=== PATIENT | male | born 1965 | race Caucasian/White ===

== ENCOUNTER 2018-12-25 19:07 | Emergency (ER) | payer MEDICAID ==
[~2018-12-25] VITALS: Ht 180.3 cm; Wt 76.2 kg
[2018-12-25 19:16] VITALS: BP 117/76
--- NOTE | 2018-12-25 19:16 | NUR ---
TO BED # 5 AMBULATORY
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
--- NOTE | 2018-12-25 19:30 | NUR ---
TelePsych consult requested.
[2018-12-25 19:53] LABS: BASOPHILS # (AUTO) 0.1 K/uL (0.00-0.22); BASOPHILS % (AUTO) 0.5 % (0.0-2.0); EOSINOPHILS # (AUTO) 0.4 K/uL (0-0.4); EOSINOPHILS % (AUTO) 4.3 % (0.0-4.0); HEMATOCRIT 40.2 % (36-52); HEMOGLOBIN 13.6 g/dL (12.0-18.0); LYMPHOCYTES # (AUTO) 4.9 K/uL (2.0-11.5); MEAN CORPUSCULAR HEMOGLOBIN 32 pg (27-31); MEAN CORPUSCULAR HGB CONC 34 g/dL (33-37); MONOCYTES # (AUTO) 0.8 K/uL (0.8-1.0); MONOCYTES % (AUTO) 7.2 % (1.7-9.3); NEUTROPHILS # (AUTO) 4.4 K/uL (1.8-7.7); PLATELET COUNT (AUTO) 280 K/uL (140-450); RED BLOOD CELL COUNT(AUTO) 4.32 MIL/uL (4.20-6.10); RED CELL DISTRIBUTION WIDTH 14.2 % (11.6-13.7); WHITE BLOOD COUNT (AUTO) 10.5 K/uL (4.8-10.8)
[2018-12-25 20:08] LABS: BARBITURATE, URINE NEG. ng/ml (NEG <=200); BENZODIAZEPINE, URINE NEG. ng/mL (NEG <=200); CANNABINOID, URINE POS. ng/mL (NEG <=50); COCAINE, URINE NEG. ng/mL (NEG <=300); OPIATE, URINE POS. ng/mL (NEG <=2000); PHENCYCLIDINE SCREEN,URINE NEG. ng/mL (NEG <=25)
--- NOTE | 2018-12-25 20:13 | NUR ---
GAVE REPORT TO TELE PSYCH MD. MD TO CALL WITHIN THE HOUR. ER MD MADE AWARE.
[2018-12-25] MEDS ORDERED: CLON1TAB PO (20:27)
[2018-12-25 20:30] LABS: ALBUMIN 4.2 g/dL (3.4-5.0); ASPARTATE AMINOTRANSFERASE 23 U/L (15-37); CARBON DIOXIDE 27.4 mmol/L (21-32); CHLORIDE 102 mmol/L (98-107); CREATININE 0.8 mg/dL (0.7-1.3); GFR ARICAN-AMERICAN 129 mL/min (>90); GLUCOSE 97 mg/dL (74-106); POTASSIUM 3.4 mmol/L (3.5-5.1); SODIUM SERUM 137 mmol/L (136-145); TOTAL BILIRUBIN 0.3 mg/dL (0.0-1.0); UREA NITROGEN, BLOOD 11 mg/dL (7-18)
[2018-12-25 20:31] LABS: ACETAMINOPHEN < 0.5 ug/ml (10-30); SALICYLATE < 2.8 mg/dL (2.8-20.0)
[2018-12-25 20:37] LABS: APPEARANCE,URINE CLEAR (CLEAR); BILIRUBIN,URINE NEGATIVE (NEGATIVE); BLOOD, URINE NEGATIVE (NEGATIVE); COLOR,URINE YELLOW (YELLOW); LEUKOCYTE ESTERASE ,URINE NEGATIVE (NEGATIVE); NITRITE, URINE NEGATIVE (NEGATIVE); PH,URINE 5.5 (5.0-9.0); UGLUCOSE NEGATIVE (NEGATIVE)
--- NOTE | 2018-12-25 21:25 | NUR ---
Packet has been received will begin to look for voluntary psych facilities.
--- NOTE | 2018-12-25 21:44 | NUR ---
Called the following facilities for voluntary psych admission. [facility] and spoke with Cecily. Possible bed, packet was faxed to [phone] for review. Cecily will call [facility] ED or Call Center if they can accommodate the patient. [facility], spoke with Eli, no voluntary beds available. [facility], spoke with Sonny, no voluntary beds available. [facility], spoke with Bonny. Packet was faxed to [phone] for review per request. They will call [facility] or Call Center if they accommodate the patient. [facility], spoke with Florecita, no voluntary beds available tonight. Will continue to call for bed placement.
--- NOTE | 2018-12-25 22:39 | NUR ---
PT IS SLEEPING IN BED, VITALS STABLE, EMT AT BEDSIDE.
--- NOTE | 2018-12-25 23:57 | NUR ---
Follow up call was made to [facility] and [facility], spoke with Cecily. Packet has been referred to [facility] and is under review. Cecily will call the Call Center or [facility] if the patient has been accepted or not.
--- NOTE | 2018-12-26 01:02 | NUR ---
Dr. Richardson evaluating patient at bedside.
--- NOTE | 2018-12-26 01:30 | NUR ---
PT SLEEPING IN BED, VSS. EMT AT BEDSIDE
--- NOTE | 2018-12-26 02:15 | NUR ---
Angie with [facility] called and says patient has been accepted. [address], [address] report # [phone] accepting : Dr. Lorenz
--- NOTE | 2018-12-26 02:42 | NUR ---
PT SITTING UP IN BED IN BED, VSS. COMFORT MEASURES OFFERED PT TOLERATED WELL. EMT AT BEDSIDE.
--- NOTE | 2018-12-26 02:55 | NUR ---
SPOKE TO RN FROM [facility] REGARDING TRANSPORTATION. RN WILL CALL BACK WITH INFORMATION. ER MD MADE AWARE.
[2018-12-26] MEDS ORDERED: DICYCLOMINE HCL LIQUID 20 MG, ALUMINUM HYD/MAG/SIMETHICONE 30 ML, LIDOCAINE VISCOUS 2% ... PO ONE ×3 (03:10)
--- NOTE | 2018-12-26 03:30 | NUR ---
PT SLEEPING IN BED, VITALS STABLE, CHARGE NURSE AT BEDSIDE.
--- NOTE | 2018-12-26 04:40 | NUR ---
PT SLEEPING IN BED, VITALS STABLE
--- NOTE | 2018-12-26 05:42 | NUR ---
PT SLEEPING IN BED, ER CHARGE NUSE AT BEDSIDE. VSS
--- NOTE | 2018-12-26 07:00 | NUR ---
PT SLEEPING IN BED, VITALS STABLE. EMT AT BEDSIDE.
--- NOTE | 2018-12-26 07:02 | NUR ---
CALLED [facility] TO GET ROOM # FOR PT. FACILITY HAS NOT ASSIGNED A ROOM, REQUESTED TO CALL BACK IN 30 MINUTES. WILL GIVE REPORT TO DAY SHIFT RN.
--- NOTE | 2018-12-26 07:12 | NUR ---
Note radha in EDM - 12/26/18 at 0715 by [facility] RECEIVED REPORT FROM MIGUELINA JOLLY. Patient appears to be resting comfortably in bed. Vital Signs within normal limits. Respirations even and unlabored.WILL CONTINUE TO MONITOR.
--- NOTE | 2018-12-26 07:15 | NUR ---
GAVE REPORT TO LIZETH RN ON DAY SHIFT, PT VITALS STABLE
--- NOTE | 2018-12-26 07:28 | NUR ---
Pt resting on bed; EMT at bedside.
--- NOTE | 2018-12-26 09:34 | NUR ---
PT ATE 50 % OF HIS BREAKFAST.
[2018-12-26] MEDS ORDERED: ACETAMINOPHEN EXTRA STRENGTH 500 MG TAB PO ONE (09:40)
--- NOTE | 2018-12-26 10:18 | NUR ---
Per [facility] pt will go straight to ER at [facility].
--- NOTE | 2018-12-26 12:35 | NUR ---
Patient to be transferred to [facility]. Is being transferred due to higher level of care. Receiving facility has accepting physician and available space. ER physician has signed transfer form. Patient or responsible republican has agreed to transfer and signed form. Patient belongings inventoried and will be sent with patient. Copy of nursing notes, lab reports, EKG, Physicians Orders and X-rays to be sent with patient. Report called to RIK Guardado at receiving facility. S ambulance service has been called for transfer. ETA 3 pm.
--- NOTE | 2018-12-26 12:45 | NUR ---
resting on bed; EMT at bedside.
--- NOTE | 2018-12-26 13:40 | NUR ---
Per [facility] transport will be here at 3 pm.
[2018-12-26 15:30] VITALS: BP 156/92
--- NOTE | 2018-12-26 15:30 | NUR ---
transport here. transfer pocket and pt belonging given to EMS.
== END 2018-12-26 15:30 ==
LOC: MED 19:07
DX: R45.851 Suicidal ideations (principal); F17.200 Nicotine dependence, unspecified, uncomplicated; Z79.899 Other long term (current) drug therapy; Z88.0 Allergy status to penicillin
CPT/HCPCS: 36415; 80053; 80305; 81003; 84484; 85025; 99285; G0480; G0482; 99283